=== PATIENT | female | born 1945 | race Hispanic/Latino ===

== ENCOUNTER 2018-07-11 13:21 | Emergency (ER) | payer OTHER ==
--- NOTE | 2018-07-11 14:34 | EDPHYS ---
Physician Documentation [facility] Name: Bob Murray Age: 72 yrs Sex: Female : 1945 Arrival Date: 07/11/2018 Time: 13:25 Bed 13 Private MD: Antonio Hartmann ED Physician Robinson Stoll HPI: 07/11 14:30 This 72 yrs old Female presents to ER via Ambulatory with complaints of Feet ma2 Swelling, Leg Swelling - PAIN. 14:30 Onset: The symptoms/episode began/occurred gradually, 3 day(s) ago. Associated signs ma2 and symptoms: Pertinent positives: warmth, Pertinent negatives: fever, nausea, numbness, swelling, tingling, vomiting, weakness. Severity of symptoms: At their worst the symptoms were mild, in the emergency department the symptoms are unchanged. The patient has not experienced similar symptoms in the past. Historical: - Allergies: 13:44 PENICILLINS; aa5 - PMHx: 13:44 Diabetes - IDDM; Thyroid problem; aa5 - PSHx: 13:44 Appendectomy; aa5 - Immunization history:: Adult Immunizations unknown. - Social history:: Smoking status: Patient/guardian denies using tobacco, Patient/guardian denies using alcohol, street drugs, The patient lives with family. - Ebola Screening: : No symptoms or risks identified at this time. - Family history:: not pertinent, pertinent for. - Hospitalizations: : No recent hospitalization is reported. ROS: 14:30 Constitutional: Negative for fever, chills, and weight loss, Cardiovascular: Negative ma2 for chest pain, palpitations, and edema, Respiratory: Negative for shortness of breath, cough, wheezing, and pleuritic chest pain, Abdomen/GI: Negative for abdominal pain, nausea, diarrhea, and constipation. 14:30 Skin: Positive for erythema, Negative for avulsion, burn, diaphoresis, pallor, puncture. 14:30 All other systems are negative. Exam: 14:30 Constitutional: This is a well developed, well nourished patient who is awake, alert, ma2 and in no acute distress. Chest/axilla: Normal chest wall appearance and motion. Nontender with no deformity. No lesions are appreciated. Cardiovascular: Regular rate and rhythm with a normal S1 and S2. No gallops, murmurs, or rubs. Normal PMI, no JVD. No pulse deficits. Respiratory: Lungs have equal breath sounds bilaterally, clear to auscultation and percussion. No rales, rhonchi or wheezes noted. No increased work of breathing, no retractions or nasal flaring. Abdomen/GI: Soft, non-tender, with normal bowel sounds. No distension or tympany. No guarding or rebound. No evidence of tenderness throughout. 14:30 Skin: 14:33 Neuro: Awake and alert, GCS 15, oriented to person, place, time, and situation. ma2 Cranial nerves II-XII grossly intact. Motor strength 5/5 in all extremities. Sensory grossly intact. Cerebellar exam normal. Normal gait. 14:33 Skin: erythema 3x3 cm + warmth no swelling no crepitations . Vital Signs: 13:44 BP 145 / 69; Pulse 87; Resp 18 S; Temp 98.4(TE); Pulse Ox 99% on R/A; Weight 75.75 kg aa5 (R); Height 5 ft. 0 in. (152.40 cm) (R); Pain 0/10; 14:40 BP 142 / 67; Pulse 83; Resp 17; Pulse Ox 99% on R/A; Pain 0/10; rb1 13:44 Body Mass Index 32.61 (75.75 kg, 152.40 cm) aa5 MDM: 14:08 Patient medically screened. [facility] 14:33 Differential diagnosis: sprain, arthritis, cellulitis. Data reviewed: vital signs, ma2 nurses notes. Counseling: I had a detailed discussion with the patient and/or guardian regarding: the historical points, exam findings, and any diagnostic results supporting the discharge/admit diagnosis, the presence of at least one elevated blood pressure reading (>120/80) during this emergency department visit, the need for outpatient follow up. Administered Medications: No medications were administered Disposition: 07/11/18 14:34 Discharged to Home. Impression: Cellulitis and acute lymphangitis. - Condition is Stable. - Discharge Instructions: Cellulitis, Adult. - Prescriptions for Clindamycin HCl 300 mg Oral Capsule - take 1 capsule by ORAL route every 6 hours for 10 days; 40 capsule. Tylenol- Codeine #3 300-30 mg Oral Tablet - take 2 tablet by ORAL route every 6 hours As needed; 30 tablet. Bactrim DS 800- 160 mg Oral Tablet - take 1 tablet by ORAL route every 12 hours for 10 days; 20 tablet. - Medication Reconciliation Form, Thank You Letter, Antibiotic Education, Prescription Opioid Use form. - Follow up: Private Physician; When: Tomorrow; Reason: Continuance of care. Signatures: Hannah Stringer, RN RN aa5 Delia Sousa RN RN rb1 Robinson Stoll MD MD ma2 Corrections: (The following items were deleted from the chart) 15:05 14:34 07/11/2018 14:34 Discharged to Home. Impression: Cellulitis and acute rb1 lymphangitis. Condition is Stable. Forms are Medication Reconciliation Form, Thank You Letter, Antibiotic Education, Prescription Opioid Use. Follow up: Private Physician; When: Tomorrow; Reason: Continuance of care. ma2
--- NOTE | 2018-07-11 14:34 | ER ---
Nurse's Notes [facility] Name: Bob Murray Age: 72 yrs Sex: Female : 1945 Arrival Date: 07/11/2018 Time: 13:25 Bed 13 Private MD: Antonio Hartmann Diagnosis: Cellulitis and acute lymphangitis Presentation: 07/11 13:42 Presenting complaint: Patient states: barbara lower extremity swelling that began 1 week aa5 ago. Pt c/o pain to barbara legs with weight bearing. Transition of care: patient was not received from another setting of care. Onset of symptoms was June 2018. Risk Assessment: Do you want to hurt yourself or someone else? Patient reports no desire to harm self or others. Initial Sepsis Screen: Does the patient meet any 2 criteria? No. Patient's initial sepsis screen is negative. Does the patient have a suspected source of infection? No. Patient's initial sepsis screen is negative. Care prior to arrival: None. 13:42 Method Of Arrival: Ambulatory aa5 13:42 Acuity: HALLEY 3 aa5 Historical: - Allergies: 13:44 PENICILLINS; aa5 - PMHx: 13:44 Diabetes - IDDM; Thyroid problem; aa5 - PSHx: 13:44 Appendectomy; aa5 - Immunization history:: Adult Immunizations unknown. - Social history:: Smoking status: Patient/guardian denies using tobacco, Patient/guardian denies using alcohol, street drugs, The patient lives with family. - Ebola Screening: : No symptoms or risks identified at this time. - Family history:: not pertinent, pertinent for. - Hospitalizations: : No recent hospitalization is reported. Screenin:05 Abuse screen: Denies threats or abuse. Nutritional screening: No deficits noted. rb1 Tuberculosis screening: No symptoms or risk factors identified. Fall Risk None identified. Assessment: 14:05 General: Appears in no apparent distress. comfortable, Behavior is calm, cooperative. rb1 Pain: Complains of pain in right leg and left leg Pain currently is 6 out of 10 on a pain scale. Aggravated by weight bearing, has pain when ambulating. Neuro: Level of Consciousness is awake, alert, obeys commands, Oriented to person, place, time, situation. Cardiovascular: Capillary refill < 3 seconds is sluggish in bilateral toes. Respiratory: Airway is patent Respiratory effort is even, unlabored, Respiratory pattern is regular, symmetrical. GI: No signs and/or symptoms were reported involving the gastrointestinal system. : No signs and/or symptoms were reported regarding the genitourinary system. Derm: Skin is red, bilateral legs. Musculoskeletal: Range of motion: intact in all extremities. 14:55 Reassessment: Patient appears in no apparent distress at this time. No changes from rb1 previously documented assessment. Vital Signs: 13:44 BP 145 / 69; Pulse 87; Resp 18 S; Temp 98.4(TE); Pulse Ox 99% on R/A; Weight 75.75 kg aa5 (R); Height 5 ft. 0 in. (152.40 cm) (R); Pain 0/10; 14:40 BP 142 / 67; Pulse 83; Resp 17; Pulse Ox 99% on R/A; Pain 0/10; rb1 13:44 Body Mass Index 32.61 (75.75 kg, 152.40 cm) aa5 ED Course: 13:25 Patient arrived in ED. sb2 13:26 Antonio Hartmann MD is Private Physician. sb2 13:42 Arm band placed on. aa5 13:43 Triage completed. aa5 14:05 Delia Sousa, RN is Primary Nurse. rb1 14:05 Patient has correct armband on for positive identification. Placed in gown. Bed in low rb1 position. Call light in reach. Side rails up X 1. Pulse ox on. NIBP on. Warm blanket given. 14:07 Robinson Stoll MD is Attending Physician. ma2 15:03 No provider procedures requiring assistance completed. Patient did not have IV access rb1 during this emergency room visit. Administered Medications: No medications were administered Outcome: 14:34 Discharge ordered by . ma2 15:03 Discharged to home ambulatory, with family. rb1 15:03 Condition: stable 15:03 Discharge instructions given to patient, Instructed on discharge instructions, follow up and referral plans. medication usage, Demonstrated understanding of instructions, follow-up care, medications, Prescriptions given X 3. 15:05 Patient left the ED. rb1 Signatures: Hannah Stringer RN RN aa5 Delia Sousa, ANDRAE ABEBE rb1 Robinson Stoll MD MD ma2 Jinny Nieto sb2 Corrections: (The following items were deleted from the chart) 15:02 14:05 Pain: Complains of pain in right leg and left leg Pain currently is 6 out of 10 rb1 on a pain scale. Aggravated by weight bearing, rb1
== END 2018-07-11 15:05 | disposition home or self-care (01) ==
LOC: ER 13:21
DX: L03.90 Cellulitis, unspecified (principal); E11.9 Type 2 diabetes mellitus without complications; Z79.4 Long term (current) use of insulin; E07.9 Disorder of thyroid, unspecified
CPT/HCPCS: 99283

== ENCOUNTER 2025-04-18 07:01 | Day surgery (SDC) | payer OTHER ==
[2025-04-17 15:26] LABS: Absolute Lymphocytes (CBC) 1.6 K/uL (0.7-4.9); Hematocrit 37.5 % (36.0-45.0); Hemoglobin 11.9 g/dL (12.0-15.0); MCH 26.7 pg (27.0-35.0); MCHC 31.8 g/dL (32.0-36.0); MCV 84.0 fL (80-100); MPV 7.8 fL (7.6-11.3); Nucleated RBC Absolute Count 0.0 (0-0); Nucleated Red Blood Cells % 0.0 % (0-0); RBC Red Blood Cell Count 4.46 M/uL (3.86-4.86); White Blood Count 5.20 thou/uL (4.3-10.9)
[2025-04-17 15:55] LABS: Potassium 4.2 mEq/L (3.5-5.1)
[2025-04-17 15:56] LABS: ALT/SGPT 110.0 U/L (13-56); AST/SGOT 122.0 U/L (15-37); Alkaline Phosphatase 118.0 U/L (45-117); Anion Gap 10.2 mEq/L (5.0-15.0); BUN Blood Urea Nitrogen 10.0 mg/dL (7-18); Bilirubin Indirect, Calculated 0.4 mg/dL (0.2-0.8); Glucose Level 202.0 mg/dL (74-106)
[2025-04-17 15:57] LABS: Albumin 3.5 g/dL (3.4-5.0); Albumin/Globulin Ratio 0.8 (1.1-1.8); Globulin 4.2 g/dL (2.3-3.5); Lipase 44.0 U/L (13-75)
--- NOTE | 2025-04-17 20:42 | RAD REPORT ---
EXAMINATION: TWO VIEW CHEST XR CLINICAL INDICATION: Female, 79 years old. Hypertension. Pre-op pending cholecystectomy TECHNIQUE: 2 view radiographs of the chest were performed. COMPARISON: No prior exam. FINDINGS: The lungs are well inflated and clear apart from mild left mid to lower lung reticular peripheral opa [place]. No pneumothorax or sizable effusion. The heart is normal in size. Mediastinal contours are unremarkable. IMPRESSION: Mild left mid to lower lung reticular peripheral opacities, could reflect scarring.
[2025-04-18] MEDS ORDERED: CEFOXITIN SODIUM 1 GM/VIAL ONE (07:21)
[2025-04-18] MEDS ORDERED: ONDANSETRON 4 MG/2 ML VIAL ONE (07:24)
[2025-04-18] MEDS ORDERED: FENTANYL CITR 100 MCG/2 ML ONE (07:24)
[2025-04-18] MEDS ORDERED: ROCURONIUM 50 MG/5 ML VIAL IV ONE (07:24)
[2025-04-18] MEDS ORDERED: LIDOCAINE 2% MPF 5 ML VIAL ONE (07:24)
[2025-04-18] MEDS ORDERED: SUGAMMADEX SODIUM 200 MG/2 ML VIAL IV ONE (07:31)
[2025-04-18] MEDS: NA CHLORIDE 0.9% 1,000 ML ONE (07:53)
[2025-04-18] MEDS: CIPROFLOXACIN 400mg IV 400 MG/200 ML BAG IV ONE (08:44)
--- NOTE | 2025-04-18 09:41 | P.BOP ---
Preoperative diagnosis: gallbladder enlarging polyps Postoperative diagnosis: same Primary procedure: Laparoscopic cholecystectomy Estimated blood loss: <10cc Specimen: gb Findings: as above Anesthesia: General Complications: None Transferred to: Recovery Room Condition: Good
[2025-04-18] MEDS ORDERED: Mastisol Adhesive Liq ONE (09:49)
[2025-04-18 11:16] VITALS: BP 128/51; TEMP 97.3; O2SAT 100
== END 2025-04-18 12:00 | disposition home or self-care (01) ==
LOC: OR 07:01
PROVIDERS: ATTEND Surgery
PROC: 0FT44ZZ Resection of Gallbladder, Percutaneous Endoscopic Approach (ICD-10-PCS; principal; 2025-04-18 08:30)
DX: K81.0 Acute cholecystitis (principal); R10.9 Unspecified abdominal pain
CPT/HCPCS: 93005; 85025; 80048; 36415; 82947 ×2; 80076; 88304; 83690; 71046; 47562; J2704; J2003; J3010; J1100; J2405; J0744; J7030; J0694